=== PATIENT | male | born 1980 | race Caucasian/White ===

== ENCOUNTER 2024-08-09 23:39 | Emergency (ER) | payer BC, SELFPAY ==
[2024-08-09 23:34] VITALS: BMI 33.9
--- NOTE | 2024-08-09 23:36 | XR_ITS ---
PROCEDURE INFORMATION: Exam: XR Pelvis Exam date and time: 08/09/2024 11:37 PM Age: 44 years old Clinical indication: Injury or trauma; Fall; Blunt trauma (contusions or hematomas); Bilateral; Pelvic region; Additional info: Ta TECHNIQUE: Imaging protocol: Radiologic exam of the pelvis. Views: 1 or 2 view. COMPARISON: No relevant prior studies available. FINDINGS: Bones/joints: Unremarkable. No acute fracture. Soft tissues: Unremarkable. IMPRESSION: No acute findings.
--- NOTE | 2024-08-09 23:36 | XR_ITS ---
PROCEDURE INFORMATION: Exam: XR Chest Exam date and time: 08/09/2024 11:37 PM Age: 44 years old Clinical indication: Injury or trauma; Fall; Blunt trauma (contusions or hematomas); Additional info: Ta TECHNIQUE: Imaging protocol: Radiologic exam of the chest. Views: 1 view. COMPARISON: No relevant prior studies available. FINDINGS: Lungs: Unremarkable. No consolidation. Pleural spaces: Unremarkable. No pleural effusion. No pneumothorax. Heart/Mediastinum: Unremarkable. No cardiomegaly. Bones/joints: Unremarkable. IMPRESSION: No acute findings.
--- NOTE | 2024-08-09 23:38 | PC.NURSE ---
calling [facility] at this time.
[2024-08-09 23:39] VITALS: BP 150/98; PULSE 80; RESP 20; TEMP 36.6; O2SAT 98
--- NOTE | 2024-08-09 23:41 | PC.NURSE ---
MD Gonzalez on phone with at this time
--- NOTE | 2024-08-09 23:43 | HMH.EDGENADL ---
Discharge Plan Disposition Patient Disposition: Xfer Short-Term Hosp Clinical Impressions Clinical Impression: Fall, Altered mental status, Epistaxis Stand Alone Forms Stand Alone Forms: Transfer Record - ED Print Language Print Language: Korean Discharge ED Provider: Mily Gonzalez Adult HPI General Stated complaint: trauma Time Seen by Provider: 08/09/24 23:39 History of Present Illness HPI narrative: 44-year-old male with history of seizure not on antiepileptic medication presents to the ER after fall approximately 10 feet. Reportedly patient was at the top of steps when something occurred and he fell down the entire flight of steps landing face first onto concrete. Positive loss of consciousness, no blood thinners. EMS reports they found him with a GCS of 5. During transportation they report stable vitals. He does not have complaints of pain on arrival to the ER but is confused. C-collar in place on arrival. Related Data Allergies Allergy/AdvReac Type Severity Reaction Status Date / Time No Known Allergies Allergy Verified 08/09/24 23:35 [facility] Disclaimer: The information contained in this section may have been updated after the patient was seen, as this information can be updated by other users. Social History Smoking Status: Never smoker alcohol intake: current current occupational status: other Travel in the last 8 weeks: None ROS Obtained: Yes unobtainable due to mental status Physical Exam General General appearance: other (Confused, sleepy but arousable) Comment: Sleepy but able to be aroused Head Head exam: normocephalic and other (Bleeding from right nare, right periorbital ecchymosis) Eye Eye exam: Present PERRL (Pupils 2 mm, sluggish) and EOMI ENT ENT exam: Present mucous membranes moist and other (No deformity of the nose, no septal hematoma) Neck Neck exam: Present trachea midline and other (C-collar in place.); Absent tenderness Chest Chest inspection: Present symmetric chest wall rise; Absent tenderness Respiratory Respiratory exam: Present normal lung sounds bilaterally; Absent respiratory distress, wheezes or stridor Cardiovascular Cardiovascular exam: Present regular rate and normal rhythm Abdominal Exam Abdominal exam: Present soft; Absent distention or tenderness Rectal Exam Rectal exam: Present normal rectal tone Extremities Exam Extremities exam: Present full ROM and other (2 cm laceration over right patella); Absent tenderness or joint swelling Back Exam Back exam: Absent tenderness or vertebral tenderness (No deformity or step-off) Neurological Exam Neurological exam: Present other (GCS 13 on arrival, sleepy but able to be aroused, confused responses, follows commands); Absent motor sensory deficit (Responds to commands equally and all extremities) Skin Skin exam: Present warm and dry Medical Decision Making Medical Records Screening: Per USPSTF and CDC recommendations, given the prevalence of disease in our region, it is our hospital?s policy to screen for HIV and viral Hepatitis for all patients aged 18 and over and those with ongoing risk factors. Harish Inquiry Pt receiving controlled substance: No Vital Signs: 08/09/24 23:39 08/09/24 23:56 Temperature 97.9 F 97.9 F Temperature Source Tympanic Pulse Rate 65 Pulse Rate [Apical] 80 Respiratory Rate 20 20 Blood Pressure 150/94 H Blood Pressure [Right Arm] 150/98 H Blood Pressure Mean [Right Arm] 115 02 Sat by Pulse Oximetry 98 Oxygen Delivery Method Nasal Cannula Nasal Cannula Oxygen Flow Rate (LPM) 4 4 Orders (Tests/Meds): ED MEDICATIONS Generic Name Dose Route Start Last Admin Trade Name Freq PRN Reason Stop Dose Admin Lactated Ringer's 1,000 mls @ 999 mls/hr 08/09/24 23:39 Lactated Ringer's 1000 Ml Bag IV 08/10/24 00:39 .Q1H1M ONE ORDERS Category Date Time Status CXR --portable [XR chest portable] Stat Exams 08/09/24 23:36 Completed POCUS Point of Care (ER Only) Stat Exams 08/09/24 23:39 Completed Pelvis XR 1-2 views [XR pelvis 1-2V] Stat Exams 08/09/24 23:36 Completed Medical Decision Narrative: In summary, 44-year-old male presents to the ER as a trauma alert after fall from at least 10 feet high down 12 steps face first on the concrete. Positive loss of consciousness. Depressed GCS upon EMS arrival. On arrival in the ER I was at bedside with the patient. Airway intact, bilateral breath sounds present, 2+ left radial pulse, GCS 13, no localizing neurologic deficits, laceration to the right knee, no spinal tenderness, deformity, or step-off. E-FAST personally performed and interpreted is negative. Patient has normal rectal tone and no other obvious injuries to the extremities. Patient has normal heart rate and blood pressure. Chest and pelvis x-ray performed and personally interpreted at bedside by me do not demonstrate pneumothorax, hemothorax, or obvious open book pelvic fracture. Radiology read pending. Patient receiving warmed IV fluids. Family presented to bedside and reports they do not believe he had any alcohol or other intoxicants. Patient continues to have depressed GCS and I believe he requires higher level of care due to the fall from height with potential for intracranial bleed, skull fracture, cervical spine injury, other acute intra-abdominal or intrathoracic injury. I am not going to delay transfer with additional lab or imaging workup. [facility] was contacted, I spoke with Dr. Pinto who graciously accepted the patient for transfer to [facility]. Patient transferred in stable condition. Procedures Miscellaneous Procedure Procedure Performed: E-FAST ultrasound Indication: Blunt trauma, fall Views: [LUQ/RUQ/pelvis/limited cardiac/limited thoracic] Interpretation: Peritoneal free fluid: Absent Pericardial effusion: Absent Right thoracic free fluid: Absent Left thoracic free fluid: Absent Right lung pneumothorax: Absent Left lung pneumothorax: Absent Impression: Negative EFAST ultrasound Images were saved in the permanent archive. The study was technically adequate. CPT 95478-89 (limited cardiac) 20520?26 (limited abdominal) 36826?26 (chest) This study was performed by me, and I personally interpreted all images/videos. Based on my clinical judgment, these images were adequate and did not necessitate further imaging. Critical Care Critical Care Time Critical Care Time: Yes Attestation: On , the high probability of a clinically significant, sudden or life threatening deterioration of the following system(s) required my full and direct attention, intervention and personal management. The time I documented below is in addition to time spent performing reported procedures but includes the following listed in this critical care notation. Total Time Total Critical Care Time: 20
[2024-08-09 23:56] VITALS: BP 150/94; PULSE 65; RESP 20; TEMP 36.6; O2SAT 95
[2024-08-10] MEDS: LACTATED RINGERS 1000ML 1,000 ML 999 ML IV (00:12)
== END 2024-08-10 00:08 | disposition short-term general hospital (02) ==
PROVIDERS: Emergency Provider Emergency Medicine
DX: R41.82 Altered mental status, unspecified (principal); R04.0 Epistaxis; S05.11XA Contusion of eyeball and orbital tissues, right eye, initial encounter; S81.011A Laceration without foreign body, right knee, initial encounter; W10.8XXA Fall (on) (from) other stairs and steps, initial encounter; Y93.89 Activity, other specified; Y92.9 Unspecified place or not applicable
CPT/HCPCS: 71045; 72170; 96360; 99285; J7120